=== PATIENT | female | born 1970 | race Two or more races ===

== ENCOUNTER 2018-02-14 20:24 | Emergency (ER) | payer OTHER ==
[~2018-02-14] VITALS: Ht 160 cm; Wt 63.5 kg
[2018-02-14] MEDS ORDERED: HYDROCODONE/APAP 5-325MG TABLET ONE (20:58)
[2018-02-14] MEDS ORDERED: CYCLOBENZAPRINE HCL 10 MG TABLET ONE (20:58)
[2018-02-14] MEDS ORDERED: CYCLOBENZAPRINE HCL 10 MG TABLET PO ONE (21:00)
[2018-02-14] MEDS ORDERED: HYDROCODONE/APAP 5-325MG TABLET PO ONE (21:00)
--- NOTE | 2018-02-14 21:04 | NUR ---
Patient to RADIOLOGY for XRAY via wheelchair.
--- NOTE | 2018-02-14 21:39 | NUR ---
Patient returned from RADIOLOGY, no acute distress noted.
--- NOTE | 2018-02-14 22:31 | NUR ---
Patient discharged to home in stable conditon. Written and verbal after care instructions given. Patient verbalizes understanding of instructions.
== END 2018-02-14 22:32 | disposition home or self-care (01) ==
LOC: ER 20:29
DX: G89.11 Acute pain due to trauma (principal); M54.2 Cervicalgia; M54.6 Pain in thoracic spine; V89.2XXA Person injured in unspecified motor-vehicle accident, traffic, initial encounter; Y93.89 Activity, other specified; Y92.89 Other specified places as the place of occurrence of the external cause; Y99.8 Other external cause status
CPT/HCPCS: 72072; A4663

== ENCOUNTER 2019-01-26 17:11 | Emergency (ER) | payer OTHER ==
[~2019-01-26] VITALS: Ht 157.5 cm; Wt 68.0 kg
--- NOTE | 2019-01-26 17:20 | NUR ---
Pt was triaged and placed back in ER waiting room because there are no ER beds available at this time.
--- NOTE | 2019-01-26 17:55 | NUR ---
Pt was not found in ER waiting room or outside ER. Per ER admitting pt decided to leave.
== END 2019-01-26 17:56 | disposition left against medical advice (07) ==
LOC: ER 17:12
DX: Z53.21 Procedure and treatment not carried out due to patient leaving prior to being seen by health care provider (principal)
CPT/HCPCS: A4663